=== PATIENT | male | born 1960 | race Caucasian/White ===

== ENCOUNTER 2018-04-22 17:24 | Emergency (ER) | payer OTHER ==
[~2018-04-22] VITALS: Ht 180.3 cm; Wt 118.2 kg
[~2018-04-22 17:24] MED LIST: FLONASE ALLERG9.9 ML NS; XANAX 0.5MG0.5 MG PO
[2018-04-22 18:11] LABS: EOS % 0.1 % (0.0-4.0); HEMOGLOBIN 16.7 g/dL (13.5-18.0); LYMPH# 2.2 (1.50-4.00); MEAN CELL VOLUME 84 fl (78-100); MEAN CORPUSCULAR HEMOGLOBIN 29 pg (27-31); MEAN CORPUSCULAR HGB CONC 35 g/dL (33-37); MEAN PLATELET VOLUME 11.8 fl (7.4-10.4); MONO # 1.1 (0.20-0.80); PLATELET COUNT 218 K/mm3 (130-400); RED BLOOD COUNT 5.74 M/mm3 (4.20-5.60); RED CELL DISTRIBUTION WIDTH 13.6 % (11.5-14.5); WHITE BLOOD COUNT 13.7 K/mm3 (4.8-10.8)
[2018-04-22 18:19] LABS: NEU # 10.3 (1.40-6.50)
[2018-04-22 18:25] LABS: ALBUMIN 4.7 g/dL (3.5-5.0); CALCIUM 9.7 mg/dL (8.4-10.2); TOTAL PROTEIN 7.7 g/dL (6.3-8.2)
[2018-04-22 18:27] LABS: LIPASE 143 U/L (23-300)
[2018-04-22] MEDS ORDERED: ZOFRAN ODT4 MG PO (21:03)
[2018-04-22 21:10] VITALS: BP 140/87
== END 2018-04-22 21:10 | disposition home or self-care (01) ==
LOC: ED 17:24
PROVIDERS: Family Medicine
DX: R11.2 Nausea with vomiting, unspecified (principal); R10.31 Right lower quadrant pain; R10.32 Left lower quadrant pain; F41.9 Anxiety disorder, unspecified; Z79.899 Other long term (current) drug therapy
CPT/HCPCS: J7030

== ENCOUNTER 2020-05-12 19:37 | Emergency (ER) | payer OTHER ==
[~2020-05-12 19:37] MED LIST changes: +ZOFRAN ODT4 MG PO
[2020-05-12] MEDS ORDERED: GLUCOPHAGE500 MG/TAB PO (19:50)
[2020-05-12] MEDS ORDERED: ZESTRIL20 M1 PO (19:50)
[2020-05-12] MEDS ORDERED: ACETAMINOPHEN-H1 TA2 PO (19:51)
[2020-05-12] MEDS ORDERED: FLOMAX0.4 MG PO (19:52)
[2020-05-12] MEDS ORDERED: COLACE100 M1 PO (20:36)
[2020-05-12] MEDS ORDERED: LMX TP (20:36)
[2020-05-12] MEDS ORDERED: HYDROCORTISON28.4 G4 TP (20:38)
[2020-05-12 20:50] VITALS: BP 129/90
== END 2020-05-12 20:50 | disposition home or self-care (01) ==
LOC: ED 19:37
DX: K64.9 Unspecified hemorrhoids (principal); I10 Essential (primary) hypertension; Z88.0 Allergy status to penicillin; Z79.84 Long term (current) use of oral hypoglycemic drugs

== ENCOUNTER 2020-08-24 11:41 | Emergency (ER) | payer OTHER ==
[~2020-08-24 11:41] MED LIST changes: +ACETAMINOPHEN-H1 TA2 PO; +COLACE100 M1 PO; +FLOMAX0.4 MG PO; +GLUCOPHAGE500 MG/TAB PO; +HYDROCORTISON28.4 G4 TP; +LMX TP; +ZESTRIL20 M1 PO
[2020-08-24] MEDS ORDERED: FLONASE ALLERG9.9 ML NS (12:04)
[2020-08-24] MEDS ORDERED: DECADRON 4MG TAB4 MG PO (12:30)
[2020-08-24 12:59] VITALS: BP 135/87
== END 2020-08-24 13:02 | disposition home or self-care (01) ==
LOC: ED 11:41
DX: H93.11 Tinnitus, right ear (principal); H65.01 Acute serous otitis media, right ear; E11.9 Type 2 diabetes mellitus without complications; I10 Essential (primary) hypertension; Z79.84 Long term (current) use of oral hypoglycemic drugs; Z87.891 Personal history of nicotine dependence

== ENCOUNTER 2023-11-20 09:31 | Emergency (ER) | payer OTHER ==
[~2023-11-20] VITALS: Ht 182.9 cm; Wt 111.4 kg
[~2023-11-20 09:31] MED LIST changes: +ATORVASTATIN CA40 MG PO; +BACTRIM DS TAB1 EACH PO; +DECADRON 4MG TAB4 MG PO; -GLUCOPHAGE500 MG/TAB PO; +HYDROCODONE PO473 ML PO; +METFORMIN HYD1000 MG PO; +OZEMPIC1 MG/0.71 SQ; +PAXLOVID CO-PA1 EACH PO; +PRILOSEC OTC20 MG PO; +TOLTERODINE TART4 MG PO
[2023-11-20] MEDS ORDERED: SEPTRA DS 8001 TAB PO (09:44)
[2023-11-20 10:02] LABS: BASO # 0.03 K/mm3 (0.02-0.10); HEMATOCRIT 44.7 % (42.0-52.0); HEMOGLOBIN 15.3 g/dL (13.5-18.0); MEAN CELL VOLUME 84 fl (78-100); MEAN CORPUSCULAR HEMOGLOBIN 29 pg (27-31); MEAN CORPUSCULAR HGB CONC 34 g/dL (33-37); MEAN PLATELET VOLUME 10.3 fl (7.4-10.4); MONO # 1.18 K/mm3 (0.20-0.80); NEU # 6.92 K/mm3 (1.40-6.50); PLATELET COUNT 300 K/mm3 (130-400); RED BLOOD COUNT 5.35 M/mm3 (4.20-5.60); RED CELL DISTRIBUTION WIDTH 12.1 % (11.5-14.5)
[2023-11-20 10:09] LABS: PH-URINE 6.5 (5.0 - 8.0); URINE APPEARANCE CLEAR (CLEAR); URINE BILIRUBIN NEGATIVE (NEGATIVE); URINE BLOOD NEGATIVE (NEGATIVE); URINE COLOR YELLOW (YELLOW); URINE GLUCOSE NEGATIVE (NEGATIVE); URINE KETONE NEGATIVE (NEGATIVE); URINE LEUKOCYTE ESTERASE NEGATIVE (NEGATIVE); URINE NITRATE NEGATIVE (NEGATIVE); URINE PROTEIN(semi-quant) NEGATIVE (NEGATIVE)
[2023-11-20] MEDS ORDERED: CEPHALEXIN500 M1 PO (10:28)
[2023-11-20] MEDS ORDERED: cefTRIAXone 1 G in Water For Injection,Sterile 10 ML IV ONE (11:00)
[2023-11-20 11:13] VITALS: BP 127/78
== END 2023-11-20 11:19 | disposition home or self-care (01) ==
LOC: ED 09:31
PROVIDERS: Family Medicine
DX: N39.0 Urinary tract infection, site not specified (principal); E86.0 Dehydration; Z88.0 Allergy status to penicillin
CPT/HCPCS: J0696; J7120